=== PATIENT | female | born 1955 | race Caucasian/White ===

== ENCOUNTER → 2016-03-23 | Outpatient (CLI) | payer BC | LOC: COL.RAD 03-22 09:30 | DX: M25.512 Pain in left shoulder (principal) | CPT/HCPCS: J3301; Q9967 ==

== ENCOUNTER → 2017-01-12 | Outpatient (CLI) | payer BC | LOC: COL.RAD 13:48 | DX: R51 Headache (principal); R42 Dizziness and giddiness ==

== ENCOUNTER → 2017-09-10 | Outpatient (CLI) | payer BC | LOC: MC.RAD 10:32 | DX: Z12.31 Encounter for screening mammogram for malignant neoplasm of breast (principal) ==

== ENCOUNTER → 2022-01-10 | Outpatient (CLI) | payer BC | LOC: MC.RAD 09:47 | DX: Z12.31 Encounter for screening mammogram for malignant neoplasm of breast (principal) ==

== ENCOUNTER → 2023-10-30 | Outpatient (CLI) | payer MEDICARE ==
[2006-02-05 09:50] VITALS: TEMP 96.8
== END ==
LOC: MC.RAD 09:07
DX: Z12.31 Encounter for screening mammogram for malignant neoplasm of breast (principal)